=== PATIENT | female | born 1990 | race Two or more races ===

== ENCOUNTER 2024-04-02 18:41 | Inpatient (IN) | payer MEDICAID, OTHER ==
[~2024-04-02] VITALS: Ht 152.4 cm; Wt 92.4 kg
[2024-04-02 18:55] VITALS: BP 115/55; PULSE 138; RESP 16; O2SAT 100
[2024-04-02] MEDS ORDERED: ONDANSETRON HCL 4 MG/2 ML VIAL IV ONE (19:15)
[2024-04-02] MEDS ORDERED: MORPHINE SULFATE 4 MG/ML SYR/VIAL IV ONE (19:15)
[2024-04-02] MEDS ORDERED: SODIUM CHLORIDE 0.9% 2,000 ML IV ONE (19:15)
--- NOTE | 2024-04-02 19:17 | ED.PDOC ---
History of Present Illness HPI Comments 34-year-old female with a history of hydrocephalus status post [employer] shunt insertion brought in by family complaining of nausea, vomiting, diarrhea and mid abdominal pain, onset 3 days ago. Patient states symptoms are associated with a dry cough and subjective fever. She denies any sick contacts, chest pain, sh ortness of breath, headache or dysuria. Chief Complaint: Nausea/Vomiting Time Seen by MD: 19:00 Primary Care Provider: NONE Reviewed Notes: Nurses Notes, Medications, Allergies Allergies: Coded Allergies: NO KNOWN ALLERGIES (Unverified , 04/02/24) Information Source: Patient, Relative (Sibling) Mode of Arrival: Ambulatory Severity: Moderate Timing: Days Duration: Since onset, Days Prehospital treatment: None Past Medical History Past Medical History (Other): Hydrocephalus Surgical History (Other): P[employer] shunt PRICING LEAD History: No Pertinent PRICING LEAD History Family History Family History: Reviewed,noncontributory to illness, Unknown Social History Smoker: Non-Smoker Alcohol: Denies ETOH Use Drugs: Denies Drug Use Lives In: Home Constitutional: reports: fever; denies: chills, diaphoresis, fatigue, malaise, sweats, weakness, others EENTM: denies: blurred vision, double vision, ear bleeding, ear discharge, ear drainage, ear pain, ear ringing, eye pain, eye redness, hearing loss, mouth pain, mouth swelling, nasal discharge, nose bleeding, nose congestion, nose pain, photophobia, tearing, throat pain, throat swelling, voice changes, others Respiratory: reports: cough; denies: hemoptysis, orthopnea, SOB at rest, shortness of breath, SOB with excertion, stridor, wheezing, others Cardiovascular: denies: chest pain, dizzy spells, diaphoresis, Dyspnea on exertion, edema, irregular heart beat, left arm pain, lightheadedness, palpitations, PND, syncope, others Gastrointestinal: reports: diarrhea, nausea, vomiting; denies: abdomen distended, abdominal pain, blood streaked bowels, constipated, dysphagia, difficulty swallowing, hematemesis, melena, poor appetite, poor fluid intake, rectal bleeding, rectal pain, others Genitourinary: denies: abnormal vagina bleeding, burning, dyspareunia, dysuria, flank pain, frequency, hematuria, incontinence, pain, , vagina discharge, urgency, others Neurological: reports: headache; denies: dizziness, fainting, left sided numbness, left sided weakness, numbness, paresthesia, pre-existing deficit, right sided numbness, right sided weakness, seizure, speech problems, tingling, tremors, weakness, others Musculoskeletal: denies: back pain, gout, joint pain, joint swelling, muscle pain, muscle stiffness, neck pain, others Integumetry: denies: bruises, change in color, change in hair/nails, dryness, laceration, lesions, lumps, rash, wounds, others Allergic/Immunocompromised: denies: Difficulty Healing, Frequent Infections, Hives, Itching, others Hematologic/Lymphatic: denies: anemia, blood clots, easy bleeding, easy bruising, swollen glands, others Endocrine: denies: excessive hunger, excessive sweating, excessive thirst, excessive urination, flushing, intolerance to cold, intolerance to heat, unexplained weight gain, unexplained weight loss, others Psychiatric: denies: anxiety, bipolar disorder, depression, hopeless, panic disorder, schizophrenia, sleepless, suicidal, others All Other Systems: Reviewed and Negative Physical Exam General Appearance: Mild Distress, Obese HEENT: Other (Dry mucous membranes) Neck: Full Range of Motion, Normal Inspection Respiratory: Lungs Clear, No Accessory Muscle Use, No Respiratory Distress, Normal Breath Sounds Cardiovascular: No Edema, No JVD, Tachycardia Breast Exam: Deferred Gastrointestinal: Soft, Tenderness (Bilateral mid abdominal and periumbilical tenderness to palpation. No tenderness to percussion. No rebound or guarding.) Genitalia: Deferred Pelvic: Deferred Rectal: Deferred Extremities: Normal inspection, Normal range of motion, Non-tender, No pedal edema Neurologic: Alert, No Motor Deficits, Normal Affect, Normal Mood, No Sensory Deficits Cerebellar Function: NOT DONE Reflexes: NOT DONE Skin: Dry, Pallor, Warm Lymphatic: NOT DONE Was a procedure done? Was a procedure done?: No Differential Dx Considerations may include: Gastroenteritis,, colitis, diverticulitis, UTI, viral syndrome, electrolyte imbalance, dehydration/hypovolemia, among others X-Ray, Labs, Meds, VS Vital Signs Date Time Temp Pulse Resp B/P (MAP) Pulse Ox O2 Delivery O2 Flow Rate FiO2 04/02/24 18:55 100.8 138 16 115/55 (75) 100 Lab Test 04/02/24 19:39 Range/Units White Blood Count 13.8 H 4.4-10.8 10^3/uL Red Blood Count 4.73 4.0-5.20 10^6/uL Hemoglobin 14.5 12.2-16.2 g/dL Hematocrit 42.2 36.0-46.0 % Mean Corpuscular Volume 89.2 80.0-100.0 fL Mean Corpuscular Hemoglobin 30.6 28.0-32.0 pg Mean Corpuscular Hemoglobin Concent 34.4 32.0-36.0 g/dL Red Cell Distribution Width 13.0 11.8-14.3 % Platelet Count 264 140-450 10^3/uL Mean Platelet Volume 7.8 6.9-10.8 fL Neutrophils (%) (Auto) 92.3 H 37.0-80.0 % Lymphocytes (%) (Auto) 2.5 L 10.0-50.0 % Monocytes (%) (Auto) 3.9 0.0-12.0 % Eosinophils (%) (Auto) 0.2 0.0-7.0 % Basophils (%) (Auto) 1.1 0.0-2.0 % Neutrophils # (Auto) 12.7 H 1.6-8.6 10 ^3/uL Lymphocytes # (Auto) 0.3 L 0.4-5.4 10 ^3/uL Monocytes # (Auto) 0.5 0-1.3 10 ^3/uL Eosinophils # (Auto) 0 0-0.8 10 ^3/uL Basophils # (Auto) 0.1 0-0.2 10 ^3/uL Nucleated Red Blood Cells 0.0 % Sodium Level 137 136-145 mmol/L Potassium Level 3.3 L 3.5-5.1 mmol/L Chloride Level 107 98-107 mmol/L Carbon Dioxide Level 18 L 20-31 mmol/L Anion Gap 12 5-15 Blood Urea Nitrogen 10 9-23 mg/dL Creatinine 0.77 0.550-1.02 mg/dL Glomerular Filtration Rate Calc 104 >90 mL/min BUN/Creatinine Ratio 13.0 10.0-20.0 Serum Glucose 122 H 74-106 mg/dL Calcium Level 9.9 8.7-10.4 mg/dL Magnesium Level 1.6 1.6-2.6 mg/dL Total Bilirubin 0.5 0.2-1.0 mg/dL Aspartate Amino Transferase (AST) 94 H 13-40 U/L Alanine Aminotransferase (ALT) 64 H 7-40 U/L Alkaline Phosphatase 162 H 46-116 U/L Total Protein 7.7 5.7-8.2 g/dL Albumin 4.8 3.2-4.8 g/dL Lipase 31 12-53 U/L Thyroid Stimulating Hormone (TSH) Pending Beta HCG, Quantitative 0.2 L 1.5-4.2 mIU/mL PROCEDURE(s): ABPL - CT AB PEL WO CON-NO ORAL OR IV REASON: mid abd pain, n/v/d ORDER NUMBER(s): [id number], ACCESSION NUMBER(s): [id number] Exam: CT CT AB PEL WO CON-NO ORAL OR IV History: mid abd pain, n/v/d Comparison Study: None available at time of dictation. TECHNIQUE: Multidetector CT of the abdomen and pelvis without contrast. Axial, coronal and sagittal multiplanar reformats were obtained from the axial data set by the technologist. Radiation Dose Information: CT Dose: CTDI volume is 14.56 mGy. Dose-length product is 804.28 mGy*cm FINDINGS: The lung bases are clear. Partially visualized heart is unremarkable. Liver, spleen, gallbladder, pancreas and adrenal glands are unremarkable. Kidneys, ureters and urinary bladder are unremarkable. Uterus is unremarkable. 3.6 cm right ovarian cyst. Small hiatal hernia. Mild gastric wall thickening which is most likely from inadequate distension. Small bowel loops are unremarkable. Appendix is unremarkable. Large bowel is unremarkable. No evidence of intraperitoneal free air or free fluid. No evidence of aortic aneurysm. No significant lymphadenopathy. Tiny fat containing umbilical hernia. Minimal soft tissue edema. There is a partially visualized tubular structure coursing through the right anterior chest wall into the peritoneal cavity and terminating over the right upper lung zone. No destructive osseous lesions are noted. IMPRESSION: No evidence of acute abdominopelvic abnormalities. 3.6 cm right ovarian cyst. Small hiatal hernia. X-Ray, Labs, Meds, VS Comment 34-year-old female with a history of hydrocephalus status post [employer]OWER[employer] shunt insertion complaining of abdominal pain, nausea, vomiting, diarrhea, fatigue, generalized weakness and dry cough Vitals remarkable for temperature 100.8, heart rate 138, BP 115/55 Exam remarkable for tachycardia, mid abdominal tenderness to palpation without rebound or guarding, generalized pallor CT abdomen and pelvis: IMPRESSION: No evidence of acute abdominopelvic abnormalities. 3.6 cm right ovarian cyst. Small hiatal hernia. CBC remarkable for WBC 13.8 with left shift, CMP remarkable for potassium 3.3, AST 94, ALT 64, alkaline phos 162 Lipase normal, hCG negative UA, influenza and COVID pending Patient treated with the following in the ED: 1L 0.9 normal saline IV bolus, morphine 4 mg IV, Zofran 4 mg IV, KCl 40 mEq p.o. On re-evaluation, patient reports only partial improvement of her symptoms. Plan is to admit the patient for pain and emesis control and ongoing IV hydration. Time of 1ST Reevaluation: 19:30 Reevaluation 1ST: Unchanged Time of 2ND Reevaluation: 21:54 Reevaluation 2ND: Unchanged Patient Education/Counseling: Diagnosis, Treatment, Prognosis Family Education/Counseling: Diagnosis, Treatment, Prognosis Additional Information - The following tests were ordered, and results were reviewed by me: Labs, PHA, CT - Additional information was gathered from interviewing the following independent Historian: Family - I reviewed and agreed with the following test results read by other provider: CT - I discussed treatments and results with medical personnel and: (consultants, family) Departure 1 Departure Time of Disposition: 21:55 Impression: Primary Impression: Abdominal pain Qualified Codes: R10.9 - Unspecified abdominal pain Additional Impressions: Nausea vomiting and diarrhea Leukocytosis Qualified Codes: D72.829 - Elevated white blood cell count, unspecified Hypokalemia Disposition: ADMITTED INPATIENT Admit to: Med Surg Condition: Fair Critical Care Note Critical Care Time?: No Stability Stability form required: No Heart Score Heart Score: Heart Score Response (Comments) Value History N/A 0 EKG N/A 0 Age N/A 0 Risk Factors N/A 0 Troponin N/A 0 Total 0 I personally scribed for JOHN ONOFRE MD ([email or web address]) on 04/02/24 at 19:17. Electronically submitted by Ramesh Domínguez ([email or web address]). JOHN ONOFRE MD Apr 02, 2024 19:17
[2024-04-02 19:47] LABS: Basophils # (auto) 0.1 10 ^3/uL (0-0.2); Basophils % (auto) 1.1 % (0.0-2.0); Eosinophils # (auto) 0 10 ^3/uL (0-0.8); Eosinophils % (auto) 0.2 % (0.0-7.0); Hematocrit 42.2 % (36.0-46.0); Hemoglobin 14.5 g/dL (12.2-16.2); Lymphocytes # (auto) 0.3 10 ^3/uL (0.4-5.4); Lymphocytes % (auto) 2.5 % (10.0-50.0); Mean Corpuscular Hemoglobin 30.6 pg (28.0-32.0); Mean Corpuscular Hgb Conc. 34.4 g/dL (32.0-36.0); Mean Corpuscular Volume 89.2 fL (80.0-100.0); Monocytes # (auto) 0.5 10 ^3/uL (0-1.3); Monocytes % (auto) 3.9 % (0.0-12.0); Neutrophils # (auto) 12.7 10 ^3/uL (1.6-8.6); Neutrophils % (auto) 92.3 % (37.0-80.0); Platelet Count (auto) 264 10^3/uL (140-450); Red Blood Cells 4.73 10^6/uL (4.0-5.20); White Blood Cell 13.8 10^3/uL (4.4-10.8)
[2024-04-02 20:06] LABS: Anion Gap 12 (5-15); Blood Urea Nitrogen 10 mg/dL (9-23); Calcium 9.9 mg/dL (8.7-10.4); Chloride 107 mmol/L (98-107); Lipase 31 U/L (12-53); Sodium 137 mmol/L (136-145)
[2024-04-02 20:07] LABS: Bilirubin, Total 0.5 mg/dL (0.2-1.0); Total Protein 7.7 g/dL (5.7-8.2)
[2024-04-02 20:10] LABS: Alanine Aminotransferase 64 U/L (7-40); Albumin 4.8 g/dL (3.2-4.8); Alkaline Phosphatase 162 U/L (46-116); Aspartate Aminotransferase 94 U/L (13-40); Carbon Dioxide 18 mmol/L (20-31); Glucose 122 mg/dL (74-106); Potassium 3.3 mmol/L (3.5-5.1)
--- NOTE | 2024-04-02 20:57 | DVH ---
Exam: CT CT AB PEL WO CON-NO ORAL OR IV History: mid abd pain, n/v/d Comparison Study: None available at time of dictation. TECHNIQUE: Multidetector CT of the abdomen and pelvis without contrast. Axial, coronal and sagittal m ultiplanar reformats were obtained from the axial data set by the technologist. Radiation Dose Information: CT Dose: CTDI volume is 14.56 mGy. Dose-length product is 804.28 mGy*cm FINDINGS: The lung bases are clear. Partially visualized heart is unremarkable. Liver, spleen, gallbladder, pancreas and adrenal glands are unremarkable. Kidneys, ureters and urinary bladder are unremarkable. Uterus is unremarkable. 3.6 cm right ovarian c yst. Small hiatal hernia. Mild gastric wall thickening which is most likely from inadequate distension. S mall bowel loops are unremarkable. Appendix is unremarkable. Large bowel is unremarkable. No evidence of intraperitoneal free air or free fluid. No evidence of aortic aneurysm. No significant lymphadenopathy. Tiny fat containing umbilical hernia. Minimal soft tissue edema. There is a partially visualized tubu lar structure coursing through the right anterior chest wall into the peritoneal cavity and terminati ng over the right upper lung zone. No destructive osseous lesions are noted. IMPRESSION: No evidence of acute abdominopelvic abnormalities. 3.6 cm right ovarian cyst. Small hiatal hernia.
[2024-04-02] MEDS ORDERED: SODIUM CHLORIDE 0.9% 1,000 ML IV SCH (22:00)
[2024-04-02] MEDS ORDERED: MORPHINE SULFATE INJ 2 MG/ml SYRG IV PRN ×2 (22:00)
[2024-04-02] MEDS ORDERED: ACETAMINOPHEN 325 MG TAB PO PRN (22:00)
[2024-04-02] MEDS ORDERED: ONDANSETRON HCL 4 MG/2 ML VIAL IV PRN (22:00)
[2024-04-02] MEDS ORDERED: NITROGLYCERIN 0.4 MG SL TAB SL PRN (22:00)
[2024-04-02] MEDS: POTASSIUM CHL 20 Meq TABLET PO ONE (23:52)
[2024-04-03] MEDS ORDERED: PANTOPRAZOLE 40 MG/10 ML VIAL INJ IV ONE (00:45)
[2024-04-03] MEDS ORDERED: D5W/SOD CHLO 0.9% 1,000 ML IV SCH (00:45)
[2024-04-03] MEDS ORDERED: ONDANSETRON HCL 4 MG/2 ML VIAL IM ONE (00:45)
[2024-04-03] MEDS ORDERED: metroNIDAZOLE 500MG/100ML 100 ML IV ONE (00:45)
[2024-04-03] MEDS ORDERED: ONDANSETRON HCL 4 MG/2 ML VIAL IV PRN (00:45)
[2024-04-03] MEDS ORDERED: cefTRIAXone 1GM/50ML D5W 50 ML IV ONE (00:45)
--- NOTE | 2024-04-03 00:48 | DVHHPRES ---
History of Present Illness Resident Creating Document: ARACELY KNOTT RESIDENT History of Present Illness Patient is 84 years old female with past medical history of hydrocephalus, on [employer] shunt came with a complaint of nausea and vomiting and diarrhea. As per patient patient has been having nausea and vomiting for 4 days starting on Wednesday. Patient reports that she has been having nausea and vomiting for last 4 days, she vomited 4 times on Wednesday, 4 times today, no blood, watery or greenish fluid. Patient also endorsed some fever up to 100 degree F with some chills. Patient also endorsed some abdominal pain, crampy in nature, 7/10, intermittent, some relief with Pepto. On further discussion patient also reported that she had diarrhea 3 times today, darkish colored,, no blood. Reported that she had some sick people at home 2 weeks before. Patient denied any chest pain, shortness of breath, acute joint swelling or redness, dysarthria, change in vision. Initial lab workup revealed leukocytosis with WBC 13.8, anemia potassium 3.3, AST 94, ALT 64, alkaline phosphatase 162. Lipase was within normal limit. HCG was within normal limit. CT abdomen revealed-No evidence of acute abdominopelvic abnormalities. 3.6 cm right ovarian cyst. Small hiatal hernia. Past Medical History Hydrocephalus on [employer] shunt Past Surgical History [employer] shunt twice once in 1989, 2nd is in 2004 Past Social History Patient denied smoking/alcoholism/drug abuse, lives with sister and brother. Review of Systems Review of Systems Allergy- NKDA Patient was seen today at the bedside. Cardiovascular- deny acute chest pain or shortness of breath or cough or palpitation Respiratory- denies cough or short of breath or wheezing Gastrointestinal- denies any rectal bleeding, Musculoskeletal-denies acute joint swelling or tenderness or redness Neurological- denies acute dysarthria, dysphagia, change in vision Psychiatry- denies depression or SI or HI Skin- denies acute rash or purpura Allergies: Coded Allergies: NO KNOWN ALLERGIES (Unverified , 04/02/24) Medications Current Medications Medications Dose Ordered Sig/Duran Route Start Time Stop Time Status Last Admin Dose Admin Sodium Chloride 1,000 ml @ 120 mls/hr Q8H20M IV 04/02/24 22:00 Ondansetron HCl 4 mg Q4HP PRN IV 04/02/24 22:00 Acetaminophen 650 mg Q6HP PRN PO 04/02/24 22:00 Morphine Sulfate 2 mg Q4HPRN PRN IV 04/02/24 22:00 Nitroglycerin 0.4 mg Q5MINP PRN SL 04/02/24 22:00 Morphine Sulfate 2 mg Q30M PRN IV 04/02/24 22:00 Exam Vital Signs Vital Signs Date Time Temp Pulse Resp B/P (MAP) Pulse Ox O2 Delivery O2 Flow Rate FiO2 04/02/24 18:55 100.8 138 16 115/55 (75) 100 Exam General examination- awake, alert, oriented, conversant HEENT- PEERLA, no acute nasal discharge Cardiovascular- S1-S2 audible, rate and rhythm regular, no murmur Respiratory- CTAB, no wheeze or rhonchi Gastrointestinal-mild upper abdominal tenderness+, bowel sound+. Nondistended Musculoskeletal-no acute joint swelling or tenderness or redness# Lower extremity- no leg edema Neurological- cranial nerves intact, no acute dysarthria or dysphagia Psychiatry- denies depression or SI or HI Skin- no acute rash or purpura Labs/Xrays Labs Test 04/02/24 19:39 Range/Units White Blood Count 13.8 H 4.4-10.8 10^3/uL Red Blood Count 4.73 4.0-5.20 10^6/uL Hemoglobin 14.5 12.2-16.2 g/dL Hematocrit 42.2 36.0-46.0 % Mean Corpuscular Volume 89.2 80.0-100.0 fL Mean Corpuscular Hemoglobin 30.6 28.0-32.0 pg Mean Corpuscular Hemoglobin Concent 34.4 32.0-36.0 g/dL Red Cell Distribution Width 13.0 11.8-14.3 % Platelet Count 264 140-450 10^3/uL Mean Platelet Volume 7.8 6.9-10.8 fL Neutrophils (%) (Auto) 92.3 H 37.0-80.0 % Lymphocytes (%) (Auto) 2.5 L 10.0-50.0 % Monocytes (%) (Auto) 3.9 0.0-12.0 % Eosinophils (%) (Auto) 0.2 0.0-7.0 % Basophils (%) (Auto) 1.1 0.0-2.0 % Neutrophils # (Auto) 12.7 H 1.6-8.6 10 ^3/uL Lymphocytes # (Auto) 0.3 L 0.4-5.4 10 ^3/uL Monocytes # (Auto) 0.5 0-1.3 10 ^3/uL Eosinophils # (Auto) 0 0-0.8 10 ^3/uL Basophils # (Auto) 0.1 0-0.2 10 ^3/uL Nucleated Red Blood Cells 0.0 % Sodium Level 137 136-145 mmol/L Potassium Level 3.3 L 3.5-5.1 mmol/L Chloride Level 107 98-107 mmol/L Carbon Dioxide Level 18 L 20-31 mmol/L Anion Gap 12 5-15 Blood Urea Nitrogen 10 9-23 mg/dL Creatinine 0.77 0.550-1.02 mg/dL Glomerular Filtration Rate Calc 104 >90 mL/min BUN/Creatinine Ratio 13.0 10.0-20.0 Serum Glucose 122 H 74-106 mg/dL Calcium Level 9.9 8.7-10.4 mg/dL Magnesium Level 1.6 1.6-2.6 mg/dL Total Bilirubin 0.5 0.2-1.0 mg/dL Aspartate Amino Transferase (AST) 94 H 13-40 U/L Alanine Aminotransferase (ALT) 64 H 7-40 U/L Alkaline Phosphatase 162 H 46-116 U/L Total Protein 7.7 5.7-8.2 g/dL Albumin 4.8 3.2-4.8 g/dL Lipase 31 12-53 U/L Thyroid Stimulating Hormone (TSH) 1.23 0.55-4.78 uIU/mL Beta HCG, Quantitative 0.2 L 1.5-4.2 mIU/mL Assessment/Plan Assessment/Plan #Acute abdominal pain with nausea and vomiting likely due to acute gastroenteritis -WBC 13.8 -pending stool CS and ova and parasite exam -continue ceftriaxone 1 g IV daily -continue metronidazole 500 mg IV daily -continue Zofran 4 mg q.6h p.r.n. -continue IV fluid as prescribed # suspected acute gastroenteritis --WBC 13.8 -pending stool CS and ova and parasite exam -continue ceftriaxone 1 g IV daily -continue metronidazole 500 mg IV daily -continue Zofran 4 mg q.6h p.r.n. -continue IV fluid as prescribed # intractable nausea and vomiting likely due to acute gastroenteritis -continue Zofran 4 mg q.6h p.r.n. -continue IV fluid as prescribed # hypokalemia, potassium 3.3 -replenished -monitor CMP # history of hydrocephalus, status post [employer] shunt -follow up outpatient # leukocytosis likely due to acute gastroenteritis -monitor CBC Goals of care/advance care planning; FULL CODE; discussed with the patient >15 minutes PUD prophylaxis: Pantoprazole DVT prophylaxis: Ambulating Plan discussed with Dr. Whitlock, nursing staff, patient Total time spent on patient evaluation, chart review, assessment and plan, discussion discussion >30 minutes Plan discussed with: Patient Plan discussed with: Patient, Other (Sister, RN) My Orders Orders - ARACELY KNOTT Procedure Category Date Status Time Admit ADMIT 04/02/24 Transmitted 21:58 Code Status CODE 04/02/24 Transmitted 21:58 Sodium Chloride 0.9% PHA 04/02/24 In Process 22:00 Ondansetron Hcl PHA 04/02/24 In Process (Zofran) 22:00 Complete Blood Count LAB 04/03/24 Logged 04:00 Comprehensive LAB 04/03/24 Logged Metabolic Panel 04:00 Npo (Nothing By DIET 04/03/24 Transmitted Mouth) Diet Breakfast Acetaminophen Tablet PHA 04/02/24 In Process (Tylenol Tablet) 22:00 Morphine Sulfate PHA 04/02/24 In Process Injection 22:00 Nitroglycerin PHA 04/02/24 In Process Sublingual (Ntrostat 22:00 Morphine Sulfate PHA 04/02/24 In Process Injection 22:00 Oxygen By Nasal RT 04/02/24 Transmitted Cannula 21:58 Stat Ekg For Chest [place] 04/02/24 In Process Pain 21:58 Notify Of Changes [place] 04/02/24 In Process From Base 21:58 Product Strategy Director For [place] 04/02/24 In Process 24 Hours 21:58 Emergency Dysrhythmia [place] 04/02/24 In Process Protocol 21:58 Rhythm Strips Once [facility] 04/02/24 In Process Every Shift 21:58 Date of Service: Apr 02, 2024 Billing Provider: LALITHA WHITLOCK MD Common Visit Codes: [id number] INP/OBS CARE (HIGH) ARACELY KNOTT Apr 03, 2024 00:48 LALITHA WHITLOCK MD Apr 03, 2024 19:16
[2024-04-03] MEDS ORDERED: cefTRIAXone 1GM/50ML D5W 50 ML IV SCH (01:00)
[2024-04-03] MEDS ORDERED: metroNIDAZOLE 500MG/100ML 100 ML IV SCH (09:00)
[2024-04-03] MEDS ORDERED: PANTOPRAZOLE 40 MG/10 ML VIAL INJ IV SCH (10:00)
--- NOTE | 2024-04-03 15:11 | DVHDSRES ---
Discharge Summary Date of Admission Resident Creating Document: ARACELY KNOTT RESIDENT Apr 02, 2024 at 21:58 Date of Discharge: Apr 03, 2024 Admitting Diagnosis #Acute abdominal pain with nausea and vomiting likely due to acute gastroenteritis # suspected acute gastroenteritis # intractable nausea and vomiting likely due to acute gastroenteritis # hypokalemia, potassium 3.3 # history of hydrocephalus, status post TUNNEL KILN REPAIRER shunt # leukocytosis likely due to acute gastroenteritis Wounds: patient could not be assessed Labs/Diagnostic Data: Laboratory Results Test 04/02/24 19:39 White Blood Count 13.8 10^3/uL (4.4-10.8) Red Blood Count 4.73 10^6/uL (4.0-5.20) Hemoglobin 14.5 g/dL (12.2-16.2) Hematocrit 42.2 % (36.0-46.0) Mean Corpuscular Volume 89.2 fL (80.0-100.0) Mean Corpuscular Hemoglobin 30.6 pg (28.0-32.0) Mean Corpuscular Hemoglobin Concent 34.4 g/dL (32.0-36.0) Red Cell Distribution Width 13.0 % (11.8-14.3) Platelet Count 264 10^3/uL (140-450) Mean Platelet Volume 7.8 fL (6.9-10.8) Neutrophils (%) (Auto) 92.3 % (37.0-80.0) Lymphocytes (%) (Auto) 2.5 % (10.0-50.0) Monocytes (%) (Auto) 3.9 % (0.0-12.0) Eosinophils (%) (Auto) 0.2 % (0.0-7.0) Basophils (%) (Auto) 1.1 % (0.0-2.0) Neutrophils # (Auto) 12.7 10 ^3/uL (1.6-8.6) Lymphocytes # (Auto) 0.3 10 ^3/uL (0.4-5.4) Monocytes # (Auto) 0.5 10 ^3/uL (0-1.3) Eosinophils # (Auto) 0 10 ^3/uL (0-0.8) Basophils # (Auto) 0.1 10 ^3/uL (0-0.2) Nucleated Red Blood Cells 0.0 % Sodium Level 137 mmol/L (136-145) Potassium Level 3.3 mmol/L (3.5-5.1) Chloride Level 107 mmol/L (98-107) Carbon Dioxide Level 18 mmol/L (20-31) Anion Gap 12 (5-15) Blood Urea Nitrogen 10 mg/dL (9-23) Creatinine 0.77 mg/dL (0.550-1.02) Glomerular Filtration Rate Calc 104 mL/min (>90) BUN/Creatinine Ratio 13.0 (10.0-20.0) Serum Glucose 122 mg/dL (74-106) Calcium Level 9.9 mg/dL (8.7-10.4) Magnesium Level 1.6 mg/dL (1.6-2.6) Total Bilirubin 0.5 mg/dL (0.2-1.0) Aspartate Amino Transferase (AST) 94 U/L (13-40) Alanine Aminotransferase (ALT) 64 U/L (7-40) Alkaline Phosphatase 162 U/L (46-116) Total Protein 7.7 g/dL (5.7-8.2) Albumin 4.8 g/dL (3.2-4.8) Lipase 31 U/L (12-53) Thyroid Stimulating Hormone (TSH) 1.23 uIU/mL (0.55-4.78) Beta HCG, Quantitative 0.2 mIU/mL (1.5-4.2) Other Laboratory Tests 04/02/24 19:39 Brief Hx & Hospital Course: HPI: patient is 84 years old female with past medical history of hydrocephalus, on TUNNEL KIL[employer] REPAIRER shunt came with a complaint of nausea and vomiting and diarrhea. As per patient patient has been having nausea and vomiting for 4 days starting on Wednesday. Patient reports that she has been having nausea and vomiting for last 4 days, she vomited 4 times on Wednesday, 4 times today, no blood, watery or greenish fluid. Patient also endorsed some fever up to 100 degree F with some chills. Patient also endorsed some abdominal pain, crampy in nature, 7/10, intermittent, some relief with Pepto. On further discussion patient also reported that she had diarrhea 3 times today, darkish colored,, no blood. Reported that she had some sick people at home 2 weeks before. Patient denied any chest pain, shortness of breath, acute joint swelling or redness, dysarthria, change in vision. Initial lab workup revealed leukocytosis with WBC 13.8, anemia potassium 3.3, AST 94, ALT 64, alkaline phosphatase 162. Lipase was within normal limit. HCG was within normal limit. CT abdomen revealed-No evidence of acute abdominopelvic abnormalities. 3.6 cm right ovarian cyst. Small hiatal hernia. Past Medical History: hydrocephalus on TUNNEL KILN REPAIRER shunt Past Surgical History: TUNNEL KILN REPAIRER shunt twice once in 1989, 2nd is in 2004 Past Social History: denied smoking/alcoholism/drug abuse, lives with sister and brother. Hospital course: Patient was assessed worked up by the admitting team at night and was started on ceftriaxone 1 g IV daily and metronidazole 500 mg IV and continued on IV fluids with suspected acute gastroenteritis. Patient's potassium was low which was adequately replenished. Before the patient could be assessed in the morning, the patient eloped. Consults/Reason for consult no consultation Operations or Procedures CT abdomen pelvis without contrast showed No evidence of acute abdominopelvic abnormalities. 3.6 cm right ovarian cyst. Small hiatal hernia. Condition at Discharge: Undetermined Final Diagnosis/Problems List #Acute abdominal pain with nausea and vomiting likely due to acute gastroenteritis # suspected acute gastroenteritis # intractable nausea and vomiting likely due to acute gastroenteritis # hypokalemia, potassium 3.3 # history of hydrocephalus, status post TUNNEL KILN REPAIRER shunt # leukocytosis likely due to acute gastroenteritis Discharge Disposition: Eloped Discharge Statement: "Patient was advised to return to the ER or call 911 if any headaches, dizziness, shortness of breath, chest pain, abdominal pain, bleeding, fevers, or worsening of medical condition. Patient was counseled about treatment plan, medications, possible side effects, patientverbalized understanding. All questions were answered to the best of my ability. This discharge took greater then 30 minutes in planning, reviewing documentation, counseling the patient, and discussing with other team members." ASSESSMENT ASSESSMENT Assessment Date of Service: Apr 03, 2024 Billing Provider: KIKO NUNEZ MD Common Visit Codes: 66550-AHX/OBS DISCH DAY >30min ARLEEN DORAN RESIDENT Apr 03, 2024 15:11 KIKO NUNEZ MD Apr 10, 2024 00:02
== END 2024-04-03 02:30 | disposition left against medical advice (07) | DRG 248 ==
LOC: ER 18:41 → OVERFLOW 21:58
PROVIDERS: ADMIT Student in an Organized Health Care Education/Training Program; ATTEND Student in an Organized Health Care Education/Training Program
DX: A04.9 Bacterial intestinal infection, unspecified (principal); D72.829 Elevated white blood cell count, unspecified; E87.6 Hypokalemia; Z98.2 Presence of cerebrospinal fluid drainage device
CPT/HCPCS: 36415; 74176; 80053; 83690; 83735; 84443; 84702; 85025; 87040; G0378